=== PATIENT | female | born 1975 | race Caucasian/White ===

== ENCOUNTER 2024-03-28 12:38 | Emergency (ER) | payer OTHER ==
[~2024-03-28] VITALS: Ht 157.5 cm; Wt 79.4 kg
[2024-03-28 12:45] VITALS: BP_SYST 124; PULSE 76; RESP 18; TEMP 98.2; O2SAT 98
[2024-03-28 16:26] VITALS: BP_SYST 124; PULSE 76; RESP 18; TEMP 98.2; O2SAT 98
== END 2024-03-28 16:26 | disposition home or self-care (01) ==
LOC: SED 12:38
DX: S83.8X2A Sprain of other specified parts of left knee, initial encounter (principal); X58.XXXA Exposure to other specified factors, initial encounter; Y93.89 Activity, other specified; Y92.89 Other specified places as the place of occurrence of the external cause; Y99.8 Other external cause status
CPT/HCPCS: 73564; 99283